=== PATIENT | male | born 1980 | race African-American/Black ===

== ENCOUNTER 2017-02-20 10:49 | Emergency (ER) | payer MEDICAID ==
[~2017-02-20] VITALS: Ht 188 cm; Wt 79.4 kg
[2017-02-20] MEDS ORDERED: MORPHINE SULFATE 4 MG/ML SYRG IV ONE (11:45)
[2017-02-20] MEDS ORDERED: LEVETIRACETAM INJ 1,000 MG in SODIUM CHL 0.9% 100 ML IV ONE (12:15)
[2017-02-20 13:30] VITALS: BP 110/58
== END 2017-02-20 16:34 | disposition home or self-care (01) ==
LOC: ER 10:54
DX: R56.9 Unspecified convulsions (principal); R51 Headache; Z91.19 Patient's noncompliance with other medical treatment and regimen; F17.210 Nicotine dependence, cigarettes, uncomplicated; F12.10 Cannabis abuse, uncomplicated
CPT/HCPCS: 96365; 99284; J1953